=== PATIENT | female | born 1945 | race African-American/Black ===

== ENCOUNTER 2021-01-28 10:00 | Emergency (ER) | payer MEDICARE ==
[~2021-01-28] VITALS: Ht 160 cm; Wt 67.0 kg
[2021-01-28] MEDS ORDERED: ONDANSETRON HCL 4MG/2ML INJ IV STA (10:12)
[2021-01-28 10:46] LABS: BASOPHILS % 0.8 % (0.0-2.0); HEMATOCRIT. 38.4 % (36.0-48.0); HEMOGLOBIN. 12.6 g/dL (12.0-16.0); LYMPHOCYTES % 17.8 % (20.0-50.0); MEAN CORPUSCULAR HEMOGLOBIN 25.1 pg (28.0-32.0); MEAN CORPUSCULAR VOLUME 76.3 fL (81.0-99.0); MEAN PLATELET VOLUME 8.2 fl (7.4-10.4); MONOCYTES % 6.6 % (2.0-8.0); NEUTROPHILS % 73.8 % (40.0-76.0); PLATELET 362 x1000/uL (130-400); RED BLOOD CELL COUNT 5.03 mill/uL (4.2-5.4); RED CELL DISTRIBUTION WIDTH 20.1 % (11.6-14.6)
[2021-01-28 10:52] LABS: CHLORIDE 100 mEq/L (98-107)
[2021-01-28 10:56] LABS: PROTHROMBIN TIME 10.9 sec (9.6-11.0)
[2021-01-28] MEDS ORDERED: ACETAMINOPHEN 325MG TABLET PO NR (12:00)
[2021-01-28 15:00] VITALS: BP 122/60
[2021-01-28] MEDS ORDERED: ONDA4TAB5 MT (15:39)
== END 2021-01-28 15:57 | disposition home or self-care (01) ==
LOC: ER 11:40 → CANBEDREQ 16:21
DX: S06.0X9A Concussion with loss of consciousness of unspecified duration, initial encounter (principal); I11.0 Hypertensive heart disease with heart failure; I50.9 Heart failure, unspecified; M19.90 Unspecified osteoarthritis, unspecified site; Z88.6 Allergy status to analgesic agent; W22.8XXA Striking against or struck by other objects, initial encounter; Y93.89 Activity, other specified; Y92.810 Car as the place of occurrence of the external cause; Y99.8 Other external cause status
CPT/HCPCS: 36415; 70450; 71045; 80053; 83605; 83735; 83880; 84145; 84484; 85025; 85610; 87040; 93005; 96374; 99285; J2405